=== PATIENT | male | born 1950 | race Caucasian/White ===

== ENCOUNTER 2024-04-08 18:34 | Inpatient (IN) | payer MEDICARE, BC ==
[2024-04-08] MEDS ORDERED: Sodium Chloride 0.9% 10 ML Syringe FLUSH PRN (19:07)
[2024-04-08] MEDS: Ketorolac 30 MG/ML SDV IVPUSH ONE (19:24)
[2024-04-08] MEDS: diazePAM 5 MG/ML MDV IV ONE (20:25)
[2024-04-08] MEDS: diazePAM 5 MG/ML MDV ONE (20:25)
[2024-04-08] MEDS ORDERED: Acetaminophen/HYDROcodone 325-5 MG Tab PO PRN (20:57)
[2024-04-08] MEDS ORDERED: Acetaminophen 650 MG Tab.ER PO PRN (22:47)
[2024-04-08] MEDS ORDERED: Non-Formulary Medication 1 Each (Naproxen Sodium [Aleve] 220 MG Capsule) PO SCH (23:00)
[2024-04-08] MEDS: atorvaSTATin 10 MG Tab PO SCH (23:47)
[2024-04-08] MEDS: Cholecalciferol (Vitamin D3) 25 MCG Tab PO SCH (23:47)
[2024-04-08] MEDS: DULoxetine 30 MG Cap PO SCH (23:47)
[2024-04-08] MEDS: Allopurinol 300 MG Tab PO SCH (23:47)
[2024-04-08] MEDS: Carbidopa/Levodopa 25-100 MG Tab PO SCH (23:48)
[2024-04-08] MEDS: Folic Acid 1 MG Tab PO SCH (23:48)
[2024-04-08] MEDS: Gabapentin 300 MG Cap PO SCH (23:49)
[2024-04-08] MEDS: Entacapone 200 MG Tab PO SCH (23:49)
[2024-04-09] MEDS: traMADol 50 MG Tab PO SCH (08:14)
[2024-04-09] MEDS: Docusate Sodium 100 MG Cap PO SCH (11:52)
[2024-04-09] MEDS: Morphine 4 MG/ML VIAL IVPUSH PRN (11:52)
[2024-04-09] MEDS: methylPREDNISolone Sodium Succinate 40 MG/1 ML SDV IVPUSH SCH (12:51)
[2024-04-09] MEDS: Cyclobenzaprine 5 MG Tab PO PRN (17:40)
[2024-04-09] MEDS ORDERED: Non-Formulary Medication 1 Each (Melatonin [Melatonin] 5 MG Tablet) PO SCH (22:00)
[2024-04-11] MEDS: Docusate Sodium 100 MG Cap PO SCH (07:13)
[2024-04-11] MEDS: Gabapentin 300 MG Cap ONE ×2 (07:13→11:30)
[2024-04-11] MEDS: Carbidopa/Levodopa 25-100 MG Tab ONE ×2 (07:13→11:30)
[2024-04-11 13:06] VITALS: BP 142/90; PULSE 91
== END 2024-04-11 14:06 | disposition home or self-care (01) | DRG 552 ==
LOC: LB.ED 18:34 → LB.MS 20:54 → UNDOADMOB 21:00 → LB.MS 21:00 → OBSVTOIN 04-11 12:34
PROVIDERS: ADMIT Surgery; ATTEND Surgery
DX: M54.50 Low back pain, unspecified (principal); G89.18 Other acute postprocedural pain; G20.B1 Parkinson's disease with dyskinesia, without mention of fluctuations; E78.00 Pure hypercholesterolemia, unspecified; G47.30 Sleep apnea, unspecified; F41.9 Anxiety disorder, unspecified; F32.A Depression, unspecified; H91.90 Unspecified hearing loss, unspecified ear; Z90.89 Acquired absence of other organs; Z79.899 Other long term (current) drug therapy
CPT/HCPCS: 96374; 96375; 96376; 99222; 99232; 99238; 99284-25; A9270-GY; G0378; J1885; J2270; J2919; J3360

== ENCOUNTER 2024-05-04 10:44 | Emergency (ER) | payer MEDICARE, BC ==
[2024-05-04] MEDS: Ketorolac 30 MG/ML SDV IM ONE (11:23)
[2024-05-04] MEDS ORDERED: Naloxone 2 MG/2 ML Syringe SUBCUT PRN (12:06)
[2024-05-04] MEDS ORDERED: Ondansetron 4 MG Tab.DIS ONE (12:07)
[2024-05-04] MEDS: Ondansetron 4 MG Tab.DIS PO ONE (12:12)
[2024-05-04] MEDS: predniSONE 20 MG Tab PO ONE (12:12)
[2024-05-04] MEDS: Morphine 2 MG/ML SYRINGE SUBCUT ONE (12:19)
[2024-05-04] MEDS: Morphine 4 MG/ML VIAL ONE (12:20)
[2024-05-04] MEDS: predniSONE 20 MG Tab ONE (14:20)
== END 2024-05-04 14:55 | disposition home or self-care (01) ==
LOC: LB.ED 10:44
DX: M54.42 Lumbago with sciatica, left side (principal); E78.00 Pure hypercholesterolemia, unspecified; Z79.899 Other long term (current) drug therapy; Z79.891 Long term (current) use of opiate analgesic; Z79.82 Long term (current) use of aspirin
CPT/HCPCS: 96372; 99283; J1885; J2270; J7512; Q0162

== ENCOUNTER 2024-09-05 09:59 | Emergency (ER) | payer MEDICARE, BC ==
[2024-09-05] MEDS: Orphenadrine 60 MG/2 ML Inj IM ONE (10:48)
[2024-09-05] MEDS: Ketorolac 15 MG/ML SDV IM ONE (10:51)
[2024-09-05] MEDS: methylPREDNISolone Sodium Succinate 125 MG/2 ML SDV IM ONE (12:11)
== END 2024-09-05 12:18 | disposition home or self-care (01) ==
LOC: LB.ED 09:59
DX: M54.42 Lumbago with sciatica, left side (principal); G89.29 Other chronic pain; E78.00 Pure hypercholesterolemia, unspecified; Z79.899 Other long term (current) drug therapy; Z79.82 Long term (current) use of aspirin
CPT/HCPCS: 96372; 99283; J1885; J2360; J2919